=== PATIENT | female | born 1985 | race Caucasian/White ===

== ENCOUNTER 2025-07-24 05:44 | Inpatient (IN) | payer OTHER ==
[~2025-07-24] VITALS: Ht 167.6 cm; Wt 76.2 kg
[2025-07-24] MEDS ORDERED: LORAZEPAM INJ 2 MG/ML VIAL ONE (05:49)
[2025-07-24] MEDS ORDERED: LEVETIRACETAM (500MG) 500 MG/5 ML VIAL IV ONE (05:54)
[2025-07-24] MEDS: LORAZEPAM INJ 2 MG/ML VIAL IV ONE (05:55)
[2025-07-24] MEDS: IV NS 0.9% 1,000 ML BAG IV ONE (06:00)
[2025-07-24] MEDS: LEVETIRACETAM (500MG) 1,000 MG in IV NS 0.9% 90 ML IV SCH (06:00)
[2025-07-24 06:16] LABS: PLATELET COUNT (AUTO) 403 K/uL (150-450); RED BLOOD CELL COUNT(AUTO) 4.62 MIL/uL (4.0-5.2); RED CELL DISTRIBUTION WIDTH 14.9 % (11.5-15.0); WHITE BLOOD COUNT (AUTO) 21.2 K/uL (4.3-11.0)
[2025-07-24 06:21] LABS: CALCIUM, SERUM 8.8 mg/dL (8.5-10.1); CREATININE 1.4 mg/dL (0.6-1.3); SODIUM SERUM 137 mmol/L (136-145); UREA NITROGEN, BLOOD 10 mg/dL (7-18)
[2025-07-24 06:29] LABS: BARBITURATE, URINE NEGATIVE (NEGATIVE); BENZODIAZEPINE, URINE NEGATIVE (NEGATIVE); COCCAINE, URINE NEGATIVE (NEGATIVE); OPIATE, URINE NEGATIVE (NEGATIVE)
[2025-07-24 06:31] LABS: AMPHETAMINE, URINE POSITIVE (NEGATIVE); CANNABINOID, URINE POSITIVE (NEGATIVE)
[2025-07-24 06:34] LABS: ASPARTATE AMINOTRANSFERASE 27 U/L (15-37); NT-PRO BNP 45 pg/mL (0-125); TOTAL PROTEIN, SERUM 8.5 g/dL (6.4-8.2)
[2025-07-24 06:38] LABS: PREGNANCY TEST URINE QUAL NEGATIVE (NEGATIVE)
[2025-07-24 09:05] VITALS: BP 112/78; TEMP 98.1; O2SAT 98
[2025-07-24] MEDS ORDERED: LORAZEPAM INJ 2 MG/ML VIAL IV PRN (09:30)
[2025-07-24] MEDS ORDERED: ACETAMINOPHEN 325 MG TABLET PO PRN (11:30)
[2025-07-24] MEDS ORDERED: MAGNESIUM HYDROXIDE 30 ML UDC PO PRN (11:30)
[2025-07-24] MEDS: IV LR 1000 ML 1,000 ML IV ONE (11:42)
[2025-07-24] MEDS: ONDANSETRON HCL/PF 4 MG/2 ML VIAL IVP PRN (11:42)
[2025-07-24] MEDS: AMOX/CLAVULANATE 875 MG TABLET PO SCH (11:43)
[2025-07-24 13:00] VITALS: BP 101/64; TEMP 98.2; O2SAT 97
[2025-07-24] MEDS: FOLIC ACID 1 MG TABLET PO SCH (13:54)
[2025-07-24] MEDS: THIAMINE HCL 100 MG TABLET PO SCH (13:54)
[2025-07-24] MEDS: CHLORDIAZEPOXIDE HCL 25 MG CAPSULE PO SCH (16:20)
[2025-07-24 17:00] VITALS: BP 117/71; TEMP 98.8; O2SAT 98
[2025-07-24] MEDS: BENZOCAINE DENTAL GEL 7.5% 9.9 GM TUBE MM PRN (17:58)
[2025-07-24] MEDS ORDERED: LEVETIRACETAM (500MG) 500 MG in IV NS 0.9% 100 ML IV SCH (20:00)
[2025-07-24 21:00] VITALS: BP 99/62; TEMP 98.1; O2SAT 98
[2025-07-24] MEDS: LEVETIRACETAM (250 MG) 250 MG TABLET PO SCH (21:47)
[2025-07-25 01:00] VITALS: BP 101/69; TEMP 98.6; O2SAT 99
[2025-07-25 05:00] VITALS: BP 106/68; TEMP 98.8; O2SAT 99
[2025-07-25 07:56] LABS: CALCIUM, SERUM 8.5 mg/dL (8.5-10.1); CREATININE 0.8 mg/dL (0.6-1.3); PHOSPHORUS 2.8 mg/dL (2.5-4.9); SODIUM SERUM 136.0 mmol/L (136-145); UREA NITROGEN, BLOOD 7.0 mg/dL (7-18)
[2025-07-25 07:59] LABS: PLATELET COUNT (AUTO) 348 K/uL (150-450); RED BLOOD CELL COUNT(AUTO) 4.21 MIL/uL (4.0-5.2); RED CELL DISTRIBUTION WIDTH 14.9 % (11.5-15.0); WHITE BLOOD COUNT (AUTO) 13.7 K/uL (4.3-11.0)
[2025-07-25] MEDS: PANTOPRAZOLE 40 MG TABLET.DR PO SCH (08:42)
[2025-07-25 09:00] VITALS: BP 103/66; TEMP 98.2; O2SAT 99
[2025-07-25] MEDS ORDERED: AMOX-430 PO (12:37)
[2025-07-25] MEDS ORDERED: LEVE500T9 PO (12:37)
[2025-07-25 13:00] VITALS: BP 112/74; TEMP 98.3; O2SAT 98
== END 2025-07-25 17:22 | disposition home or self-care (01) | DRG 101 ==
LOC: ER 05:50 → TELE1 08:42
PROVIDERS: ADMIT Nurse Practitioner Family; ATTEND Nurse Practitioner Family
DX: R56.9 Unspecified convulsions (principal); N17.9 Acute kidney failure, unspecified; R73.9 Hyperglycemia, unspecified; D72.829 Elevated white blood cell count, unspecified; F15.10 Other stimulant abuse, uncomplicated; F10.10 Alcohol abuse, uncomplicated; J32.0 Chronic maxillary sinusitis; Y90.0 Blood alcohol level of less than 20 mg/100 ml; Z87.891 Personal history of nicotine dependence
CPT/HCPCS: 36415; 70450-TC; 71045-TC; 80048-TC; 80076-TC; 82962-TC; 83735-TC; 83880; 84100-TC; 84439-TC; 84443-TC; 84481; 84484-TC; 84702-TC; 84703-TC; 85025-TC; 95819-TC; A4223; G0378; G0480; J1953; J2060; J2405; J7030; J7120

== ENCOUNTER 2025-07-30 12:06 | Emergency (ER) | payer OTHER ==
[~2025-07-30] VITALS: Ht 170.2 cm; Wt 70.3 kg
[~2025-07-30 12:06] MED LIST: AMOX-430 PO; LEVE500T9 PO
[2025-07-30] MEDS ORDERED: FAMOTIDINE/PF INJ 20 MG/2 ML VIAL IV ONE (13:16)
[2025-07-30] MEDS: IV NS 0.9% 1,000 ML BAG IV ONE (13:40)
[2025-07-30] MEDS: FAMOTIDINE/PF INJ 20 MG/2 ML VIAL IV ONE (13:40)
[2025-07-30] MEDS ORDERED: PRED20TA PO (13:40)
[2025-07-30] MEDS ORDERED: LEVO750T46 PO (14:35)
[2025-07-30 14:41] VITALS: BP 113/76; TEMP 98.2; O2SAT 99
== END 2025-07-30 14:41 | disposition home or self-care (01) ==
LOC: ER 12:09
DX: L50.9 Urticaria, unspecified (principal); T78.40XA Allergy, unspecified, initial encounter; R56.9 Unspecified convulsions; J32.9 Chronic sinusitis, unspecified; Z79.52 Long term (current) use of systemic steroids; Z79.899 Other long term (current) drug therapy; Y92.89 Other specified places as the place of occurrence of the external cause
CPT/HCPCS: 99284; 96374; 96375; 96361; J1200; J1308; J7030; J2919